=== PATIENT | male | born 1965 | race Caucasian/White ===

== ENCOUNTER → 2019-01-27 | Outpatient (CLI) | payer OTHER ==
[~2019-01-27] MED LIST: METOPROLOL 5 MG INJ
[2019-01-27] MEDS: SOD CHLORIDE 0.9% 100 ML (11:10)
[2019-01-27] MEDS: IOHEXOL 100 ML (11:10)
== END | disposition home or self-care (01) ==
LOC: C/S 09:01
DX: R93.1 Abnormal findings on diagnostic imaging of heart and coronary circulation (principal); R07.9 Chest pain, unspecified
CPT/HCPCS: 75571; 75571-59; 75574